=== PATIENT | male | born 1995 | race Caucasian/White ===

== ENCOUNTER 2017-07-09 14:08 | Emergency (ER) | payer SELFPAY ==
--- NOTE | 2017-07-09 14:15 | ER Report ---
History and Physical Time Seen By MD: 14:15 (ALAN MARTÍNEZ) HPI/ROS CHIEF COMPLAINT: Left shoulder pain HISTORY OF PRESENT ILLNESS: 21-year-old male patient presents to emergency room with complaint of left shoulder pain. Patient states that he is concerned that is broken his shoulder. He states he was playing kickball and fell on his shoulder. He denies any numbness or tingling to his hand. Patient states this happened approximately one hour prior to arrival and has not taken anything for this, he has not taken any Tylenol or ibuprofen. Patient states that his pain is currently an 8 out of 10. He denies any head injury, nausea, vomiting or diarrhea. REVIEW OF SYSTEMS: Respiratory: No cough, no dyspnea. Cardiovascular: No chest pain, no palpitations. Gastrointestinal: No vomiting, no abdominal pain. Musculoskeletal: As noted above (ALAN MARTÍNEZ) Allergies: Coded Allergies: No Known Drug Allergies (Unverified , 07/09/17) Home Meds Active Scripts Hydrocodone Bit/Acetaminophen (HYDROCODON-ACETAMINOPHEN 5-325) 1 Each Tablet, 1 EACH PO Q4-6H Y for PAIN, #12 TAB Prov:ALAN MARTÍNEZ 07/09/17 Past Medical/Surgical History Patient has a past medical history of alcohol use. Patient denies any surgical history. (ALAN MARTÍNEZ) Reviewed Nurses Notes: Yes (ALAN MARTÍNEZ) Constitutional Vital Sign - Last 24 Hours 07/09/17 07/09/17 07/09/17 07/09/17 14:16 14:16 14:30 14:38 Temp 97.9 Pulse 93 73 B/P (MAP) 129/111 (117) 129/111 131/70 (90) Pulse Ox 94 93 O2 Delivery Room Air 07/09/17 07/09/17 07/09/17 07/09/17 14:43 14:58 15:00 15:13 Pulse 76 70 74 B/P (MAP) 125/64 (84) Pulse Ox 94 94 93 07/09/17 07/09/17 07/09/17 07/09/17 15:18 15:23 15:28 15:30 Pulse 72 76 70 Resp 33 B/P (MAP) 121/62 (81) Pulse Ox 95 93 07/09/17 07/09/17 07/09/1718 15:33 15:35 15:37 15:38 Pulse 71 72 Resp 10 28 B/P (MAP) 141/77 (98) 120/74 (89) Pulse Ox 100 100 07/09/17 07/09/17 07/09/17 07/09/17 15:40 15:45 15:50 15:55 Pulse 59 61 70 Resp 12 14 12 B/P (MAP) 115/62 (79) 126/66 (86) 125/65 (85) 124/69 (87) Pulse Ox 98 98 99 07/09/17 07/09/17 07/09/17 07/09/17 16:00 16:05 16:10 16:15 Pulse 70 79 68 Resp 13 16 18 18 B/P (MAP) 124/62 (82) 127/77 (94) 138/60 (86) 124/74 (91) Pulse Ox 100 100 100 100 07/09/17 07/09/17 07/09/17 16:20 16:25 16:30 Pulse 69 71 Resp 14 15 15 B/P (MAP) 117/62 (80) 114/66 (82) 123/61 (81) Pulse Ox 100 100 100 (LAURORA,RUMA V DO) Physical Exam General Appearance: The patient is alert, has no immediate need for airway protection and no current signs of toxicity. ENT: Tympanic membranes are pearly-fabian, auditory canals are patent, mucous membranes are moist. Respiratory: Chest is non tender, lungs are clear to auscultation. Cardiac: regular rate and rhythm Gastrointestinal: Abdomen is soft and non tender, no masses, bowel sounds normal. Musculoskeletal: Neck: Neck is supple and non tender. Extremities have full range of motion and are non tender. She has obvious dislocation of the left shoulder, he is tender to touch. Skin: No rashes or lesions. DIFFERENTIAL DIAGNOSIS: After history and physical exam differential diagnosis was considered for dislocation, fracture, separation. (ALAN MARTÍNEZ) Medical Decision Making EKG/Imaging Imaging Examination: SHOULDER MIN 2 VIEWS LEFT Comparison: Earlier the same day. History: Postreduction. Findings: AP and Grashey view of the left shoulder; glenohumeral alignment appears to be within normal limits. There is a focal irregularity along the posterolateral humeral head suspicious for an impaction fracture. Alignment appears grossly normal. Acromioclavicular joint alignment is within normal limits. Visualized left hemithorax is clear. IMPRESSION: 1. Improved postreduction alignment of the left glenohumeral joint. 2. Humeral head impaction fracture. Report Dictated By: Jose M Deras MD at 07/09/2017 4:06 PM Report E-Signed By: Jose M Deras MD at 07/09/2017 4:08 PM SHOULDER MIN 2 VIEWS LEFT COMPARISONS: None. ADDITIONAL PERTINENT HISTORY: Shoulder pain FINDINGS: Osseous structures: Mild flattening of the lateral aspect of the humeral head concerning for an underlying Hill-Sachs deformity. Joint spaces: Anterior dislocation at the left glenohumeral joint Surrounding soft tissues: Negative. IMPRESSION: 1. Findings of an underlying anterior dislocation of the left glenohumeral joint. 2. Mild flattening of the superior lateral humeral head concerning for an underlying Hill-Sachs deformity. Report Dictated By: Kiran Palomares MD at 07/09/2017 3:13 PM Report E-Signed By: Kiran Palomares MD at 07/09/2017 3:14 PM (ALAN MARTÍNEZ) ED Course/Re-evaluation ED Course Patient is admitted and examined, history and physical were obtained. Digital diagnoses were considered. On examination patient has obvious deformity of the left shoulder consistent with an anterior dislocation. And x-rays done which confirmed the anterior dislocation. Consent for conscious sedation was done. The conscious sedation and monitoring reduction was done as described below. When patient was awake, he states he was feeling better. We discussed that he does have impaction fracture of the humeral head. Patient was placed in a splint. We will go ahead and discharge patient home at this time. He'll be given a limited supply of pain medication, he is to follow-up with orthopedics. Patient is to ice the shoulder to 3 times a day. He is to wear the sling all the time. He may take it off to shower. Patient verbalized understanding and agreement with plan. Procedure: Procedural sedation. A pre-sedation evaluation was completed on the patient at 1330. Patient is an appropriate candidate for procedural sedation. The risks of the sedation were discussed with the patient. A time out was completed. The patient was reevaluated immediately prior to initiation of sedation. The patient was sedated with propofol 100 mg. The patient was monitored with continuous pulse oximetry and electronic device monitor. There were no complications and no significant hypoxemia. I remained at the bedside for the sedation. The total time I spent in the procedural sedation was 10 minutes. Post sedation evaluation: Patient was alert and cooperative, hemodynamically stable with appropriate respiratory status, temperature and pain control without ongoing nausea and vomiting. Decision to Disposition Date: Jul 09, 2017 Decision to Disposition Time: 16:44 (ALAN MARTÍNEZ) Decision to Disposition Date: Jul 09, 2017 Decision to Disposition Time: 17:19 (RUMA LEOS DO) Depart Departure Latest Vital Signs Vital Signs Date Time Temp Pulse Resp B/P (MAP) Pulse Ox O2 Delivery O2 Flow Rate FiO2 07/09/17 16:30 71 15 123/61 (81) 100 07/09/17 14:16 97.9 Room Air (RUMA LEOS DO) Impression: Primary Impression: Shoulder dislocation Additional Impression: Hill Sachs deformity, left Condition: Improved Disposition: HOME OR SELF-CARE Referrals: C:[facility] 2 Days New Scripts Hydrocodone Bit/Acetaminophen (HYDROCODON-ACETAMINOPHEN 5-325) 1 Each Tablet 1 EACH PO Q4-6H Y for PAIN, #12 TAB Prov: ALAN MARTÍNEZ 07/09/17 Patient Instructions: Shoulder Dislocation (ED) Additional Instructions: Limit activity by pain. Ice the shoulder 2-3 times a day for 20-30 minutes. Follow up with [facility], call Tuesday to make an appointment. Wear splint 23/24 hours a day, taking shower. You may take Ibuprofen as needed for pain in addition to the pain medication. Don't take any additional Tylenol while on the pain medication. Medications which were given in the emergency department: Morphine 4mg on arrival for pain. Ativan 1mg on arrival for muscle spasms For procedural sedation he received: propofol 100mg and Fentanyl 50mcg DAM OPERATOR/PA consult with MD: Verbally, Examined Patient MD Consult Note: I personally saw and evaluated the patient in conjunction with the midlevel provider and agree with plan. I assisted with the procedural sedation. Time out prior to procedure. Diprivan 100mg was given and shoulder was reduced with traction on first attempt. PT tolerated procedure well. (RUMA LEOS DO) Problem Qualifiers Primary Impression: Shoulder dislocation Encounter type: initial encounter Laterality: left Qualified Codes: S43.005A - Unspecified dislocation of left shoulder joint, initial encounter ALAN MARTÍNEZ Jul 09, 2017 14:15 RUMA LEOS DO Jul 09, 2017 17:12
[2017-07-09] MEDS ORDERED: MORPHINE 4 MG/ML SDV IVP ONE (14:20)
[2017-07-09] MEDS ORDERED: LORazepam 2 MG/ML VIAL IVP ONE (14:20)
[2017-07-09] MEDS ORDERED: PROPOFOL EMUL 10MG/ML 20 ML VL IVP ONE (15:10)
[2017-07-09] MEDS ORDERED: fentaNYL CITR 100 MCG/2 ML AMP IVP ONE (15:15)
--- NOTE | 2017-07-09 15:18 | RADIOLOGY IMAGING REPORT ---
FACILITY: [facility] [place] PATIENT NAME: Lalito Alegre : 1995 MR: [id number] V: [id number] EXAM DATE: ORDERING PHYSICIAN: ALAN MARTÍNEZ TECHNOLOGIST: Location: [facility] - [place] Patient: Lalito Alegre : 1995 Visit/Account:[id number] Date of Sevice: 07/09/2017 SHOULDER MIN 2 VIEWS LEFT COMPARISONS: None. ADDITIONAL PERTINENT HISTORY: Shoulder pain FINDINGS: Osseous structures: Mild flattening of the lateral aspect of the humeral head concerning for an under lying Hill-Sachs deformity. Joint spaces: Anterior dislocation at the left glenohumeral joint Surrounding soft tissues: Negative. IMPRESSION: 1. Findings of an underlying anterior dislocation of the left glenohumeral joint. 2. Mild flattening of the superior lateral humeral head concerning for an underlying Hill-Sachs defor mity. Report Dictated By: Kiran Palomares MD at 07/09/2017 3:13 PM Report E-Signed By: Kiran Palomares MD at 07/09/2017 3:14 PM [id number]
[2017-07-09] MEDS ORDERED: NS(*) 0.9% 1000 ML BAG 1,000 ML IV ONE (15:55)
--- NOTE | 2017-07-09 16:11 | RADIOLOGY IMAGING REPORT ---
[place] [facility] [place] NAME: Lalito Alegre : 1995 MR: [id number] V: [id number] EXAM DATE: ORDERING PHYSICIAN: ALAN MARTÍNEZ TECHNOLOGIST: Location: [facility] - [place], [place] Patient: Lalito Alegre : 1995 Visit/Account:[id number] Date of Sevice: 07/09/2017 Examination: SHOULDER MIN 2 VIEWS LEFT Comparison: Earlier the same day. History: Postreduction. Findings: AP and Grashey view of the left shoulder; glenohumeral alignment appears to be within zaynab l limits. There is a focal irregularity along the posterolateral humeral head suspicious for an impac tion fracture. Alignment appears grossly normal. Acromioclavicular joint alignment is within normal l imits. Visualized left hemithorax is clear. IMPRESSION: 1. Improved postreduction alignment of the left glenohumeral joint. 2. Humeral head impaction fracture. Report Dictated By: Jose M Deras MD at 07/09/2017 4:06 PM Report E-Signed By: Jose M Deras MD at 07/09/2017 4:08 PM [id number]
[2017-07-09] MEDS ORDERED: HYDR-385 PO (16:46)
[2017-07-09 17:15] VITALS: BP 129/71
== END 2017-07-09 17:27 | disposition home or self-care (01) ==
LOC: ER 14:19
DX: S43.005A Unspecified dislocation of left shoulder joint, initial encounter (principal); S42.209A Unspecified fracture of upper end of unspecified humerus, initial encounter for closed fracture
CPT/HCPCS: 23650; 73030; 96361; 96374; 96375; 99285; J2060; J2270; J2704; J3010; J7030